=== PATIENT | female | born 1945 | race Caucasian/White ===

== ENCOUNTER 2017-04-20 15:58 | Inpatient (IN) | payer MEDICARE ==
[~2017-04-20] VITALS: Ht 156.2 cm; Wt 66.0 kg
[~2017-04-20 15:58] MED LIST: BACT800T5 PO; BENI20TA3 PO; CRANCAP11 PO; ESTR2TAB4 PO; GABA300C5 PO; LEXA5TAB PO; MULTTAB67 PO; PROT40TA PO; [UNRECOGNIZED DRUG - CODE] PO; potassium otc PO
[2017-04-20 16:01] VITALS: BP 178/77; PULSE 78; RESP 16; TEMP 98.2; O2SAT 98
[2017-04-20 16:45] VITALS: RESP 17; O2SAT 98
--- NOTE | 2017-04-20 16:58 | PD ---
HPI Chief Complaint: Chest Pain Time Seen by Provider: 16:24 Travel History International Travel<30 days: No Contact w/Intl Traveler<30days: No Traveled to known affect area: No History of Present Illness HPI 71-year-old female presents to emergency Department with complaint of left- sided chest pain 2 days. Reports shortness of breath feeling lethargic, and nauseated without recent vomiting. Ports vomiting 2 days ago. Was seen in urgent care and was told to come to the emergency department. Chest pain is intermittent and reports worsening today. It rates pain 9/10. Describes it as pressure. Reports tobacco use. No known aggravating factors. Denies anticoagulants therapy. Is also Complaining of left lower extremity pain behind her knee and edema times one week. 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 Payton. Denies history of DVT or PE. Denies recent surgeries. Positive family history of heart attacks with her mother and brother. She was given aspirin urgent care prior to arrival to the ER. Denies fevers. No known allergies. Primary care provider is Dr. Hawk. History of asthma, Jain cyst, hypertension. Has no medical complaints. No modifying factors or associated signs and symptoms. PFSH Past Medical History Hx Anticoagulant Therapy: No Blood Disorders: No Anxiety: Yes Depression: Yes Cancer: No Cardiovascular Problems: Yes (HTN) Chemotherapy: No Chest Pain: Yes Cerebrovascular Accident: No Diabetes: No Endocrine: No Gastrointestinal Disorders: Yes Genitourinary: No Hypertension: Yes Immune Disorder: No Implanted Vascular Access Dvce: Yes Musculoskeletal: Yes Neurologic: No Psychiatric: Yes Reproductive: No Respiratory: Yes ?: Not Menopausal: Yes : 2 Para: 2 Past Surgical History Abdominal Surgery: Yes (KALPANA,APPY,GALLBLADDER) Appendectomy: Yes Cholecystectomy: Yes Hysterectomy: Yes Other Surgery: Yes Social History Alcohol Use: Yes (EVERY OTHER DAY 1 DRINK ) Tobacco Use: No Substance Use: No Allergies-Medications (Allergen,Severity, Reaction): Coded Allergies: No Known Allergies (Unverified Allergy, Unknown, 04/20/17) Reported Meds & Prescriptions Reported Meds & Active Scripts Active Reported Seroquel (Quetiapine Fumarate) 50 Mg Tab 50 Mg PO HS [place] (Hydrocodone-Acetaminophen) 10-325 Mg Tab 1 Tab PO Q6H PRN Mobic (Meloxicam) 15 Mg Tab 15 Mg PO DAILY Xanax (Alprazolam) 0.5 Mg Tab 0.5 Mg PO TID PRN Benicar (Olmesartan) 5 Mg Tab 5 Mg PO DAILY Lexapro (Escitalopram Oxalate) 20 Mg Tab 20 Mg PO HS Multiple Vitamin 1 Tab 1 Tab PO DAILY Gabapentin 300 Mg Cap 300 Mg PO TID Estrace (Estradiol) 2 Mg Tab 3 Mg PO DAILY Review of Systems Except as stated in HPI: all other systems reviewed are Neg Physical Exam Narrative GENERAL: Well-nourished, well-developed female patient, in no acute distress SKIN: Warm and dry. HEAD: Atraumatic. Normocephalic. EYES: Pupils equal and round. No scleral icterus. No injection or drainage. ENT: Mucosa pink and moist. Airway patent. NECK: Trachea midline. CHEST: Reproducible tenderness to the left chest area on palpation; no crepitance or deformity. CARDIOVASCULAR: Regular rate and rhythm. No murmur appreciated. RESPIRATORY: No accessory muscle use. Clear and equal to auscultation bilaterally. GASTROINTESTINAL: Abdomen soft, non-tender, nondistended. No signs active 4 quadrants. MUSCULOSKELETAL: Left lower extremity supple and non-tense with 2+ pedal pulse and sensory intact without erythema. Reproducible tenderness on palpation to the left posterior upper calf and behind the knee. No obvious deformities. No clubbing. No cyanosis. cranial nerve deficits. Motor grossly within normal limits. Normal speech. PSYCHIATRIC: Appropriate mood and affect; insight and judgment normal. Data Data Last Documented VS Orders Orders Electrocardiogram (04/20/17 16:14) Complete Blood Count With Diff (04/20/17 16:14) Chest, Single Ap (04/20/17 16:14) Iv Access Insert/Monitor (04/20/17 16:14) Ecg Monitoring (04/20/17 16:14) Oxygen Administration (04/20/17 16:14) Oximetry (04/20/17 16:14) Basic Metabolic Panel (Bmp) (04/20/17 16:47) Ckmb (Isoenzyme) Profile (04/20/17 16:47) Magnesium (Mg) (04/20/17 16:47) Prothrombin Time / Inr (Pt) (04/20/17 16:47) Act Partial Throm Time (Ptt) (04/20/17 16:47) Troponin I (04/20/17 16:47) Sodium Chloride 0.9% Flush (Ns Flush) (04/20/17 17:00) Us Leg Venous Doppler (04/20/17 ) CKMB (04/20/17 16:50) CKMB% (04/20/17 16:50) Sodium Chlorid 0.9% 500 Ml Inj (Ns 500 M (04/20/17 19:00) Sodium Chlor 0.9% 1... W/Sodium Bicarbon (04/20/17 19:00) Admit To Inpatient (04/20/17 ) Vital Signs (Adult) Q4H (04/20/17 19:35) Activity Oob Ad Maame (04/20/17 19:35) Latex Foam Worker / Telemetry .CONTINUOUS (04/20/17 19:35) Intake + Output EDER.QSHIFT (04/20/17 19:35) Diet Heart Healthy (04/21/17 Breakfast) Sodium Chlor 0.9% 1000 Ml Inj (Ns 1000 M (04/20/17 19:35) Sodium Chloride 0.9% Flush (Ns Flush) (04/20/17 19:45) Sodium Chloride 0.9% Flush (Ns Flush) (04/20/17 21:00) Ondansetron Inj (Zofran Inj) (04/20/17 19:45) Comprehensive Metabolic Panel (04/21/17 06:00) Complete Blood Count With Diff (04/21/17 06:00) Creatine Kinase (Cpk) (04/21/17 00:00) Creatine Kinase (Cpk) (04/21/17 06:00) Troponin I (04/21/17 00:00) Troponin I (04/21/17 06:00) Heparin Inj (Heparin Inj) (04/21/17 09:00) Acetaminophen (Tylenol) (04/20/17 19:45) Acetamin-Hydrocod 325-5 Mg (Corinth 5-325 (04/20/17 19:45) Morphine Inj (Morphine Inj) (04/20/17 19:45) Docusate Sodium-Senna (Keyla-Colace) (04/20/17 21:00) Magnesium Hydroxide Liq (Milk Of Magnesi (04/20/17 19:45) Sennosides (Senokot) (04/20/17 19:45) Bisacodyl Supp (Dulcolax Supp) (04/20/17 19:45) Lactulose Liq (Lactulose Liq) (04/20/17 19:45) Inpatient Certification (04/20/17 ) Nitroglycerin 2% Oint (Nitroglycerin 2% (04/20/17 19:45) Alprazolam (Xanax) (04/20/17 19:45) Escitalopram (Lexapro) (04/20/17 21:00) Estradiol (Estradiol) (04/21/17 09:00) Gabapentin (Neurontin) (04/21/17 09:00) Multivitamin (Theragran) (04/21/17 09:00) Quetiapine (Seroquel) (04/20/17 21:00) Labs Laboratory Tests Test 04/20/17 16:50 White Blood Count 9.0 TH/MM3 Red Blood Count 2.90 MIL/MM3 Hemoglobin 10.1 GM/DL Hematocrit 30.3 % Mean Corpuscular Volume 104.5 FL Mean Corpuscular Hemoglobin 34.9 PG Mean Corpuscular Hemoglobin Concent 33.4 % Red Cell Distribution Width 17.0 % Platelet Count 286 TH/MM3 Mean Platelet Volume 8.8 FL Neutrophils (%) (Auto) 75.9 % Lymphocytes (%) (Auto) 15.5 % Monocytes (%) (Auto) 5.6 % Eosinophils (%) (Auto) 1.9 % Basophils (%) (Auto) 1.1 % Neutrophils # (Auto) 6.8 TH/MM3 Lymphocytes # (Auto) 1.4 TH/MM3 Monocytes # (Auto) 0.5 TH/MM3 Eosinophils # (Auto) 0.2 TH/MM3 Basophils # (Auto) 0.1 TH/MM3 CBC Comment DIFF FINAL Differential Comment Prothrombin Time 9.3 SEC Prothromb Time International Ratio 0.8 RATIO Activated Partial Thromboplast Time 26.6 SEC Blood Urea Nitrogen 25 MG/DL Creatinine 2.05 MG/DL Random Glucose 78 MG/DL Calcium Level 8.4 MG/DL Magnesium Level 1.8 MG/DL Sodium Level 134 MEQ/L Potassium Level 4.5 MEQ/L Chloride Level 101 MEQ/L Carbon Dioxide Level 25.9 MEQ/L Anion Gap 7 MEQ/L Estimat Glomerular Filtration Rate 24 ML/MIN Total Creatine Kinase 3287 U/L Creatine Kinase MB 37.3 NG/ML Creatine Kinase MB % 1.1 % Troponin I LESS THAN 0.02 NG/ML MDM Medical Decision Making Medical Screen Exam Complete: Yes Emergency Medical Condition: Yes Medical Record Reviewed: Yes Differential Diagnosis DVT, nonspecific chest pain, UT, ACS, Jain cyst Narrative Course 71-year-old female with chest pain and left leg pain and edema. Chest pain protocol ordered. Left leg ultrasound ordered. Patient discussed with Dr. Guerra and he agrees with my plan of care. 1846: Chest x-ray and left leg venous Doppler ultrasound concludes: Chest X-Ray 04/20/17 1614 Signed Impressions: Service Date/Time: Thursday, April 20, 2017 16:47 - CONCLUSION: The lungs are clear. Ralph Herrera MD Lower Extremity Ultrasound 04/20/17 0000 Signed Impressions: Service Date/Time: Thursday, April 20, 2017 17:12 - CONCLUSION: Normal examination. Collection the popliteal fossa measuring 5.6 x 2.8 x 2.7 cm likely Jain's cyst David Piper MD Chest x-ray and ultrasound findings discussed with the patient. 184: CBC with signs of anemia, otherwise unremarkable. Coags unremarkable. BUN 25, creatinine 2.05, GFR 24. Total CK 3287, CK-MB 37.3. Troponin less than 0.02. Discussed findings with Dr. Guerra and he recommended patient admission, 500 mL normal saline bolus, and 1900: Dr. Guerra spoke with Dr. Vazquez for patient admission. Physician Communication Physician Communication JOSTIN Guillory Diagnosis Primary Impression: Rhabdomyolysis Qualified Codes: M62.82 - Rhabdomyolysis Additional Impressions: Chest pain Qualified Codes: R07.9 - Chest pain, unspecified Acute on chronic kidney failure Qualified Codes: N17.9 - Acute kidney failure, unspecified; N18.9 - Chronic kidney disease, unspecified Admitting Information Admitting Physician Requests: Admit Scripts Furosemide (Furosemide) 20 Mg Tab 20 MG PO DAILY for chf, #30 TAB 0 Refills Prov: Yony Velez MD 04/24/17 Doxycycline Hyclate (Doxycycline Hyclate) 100 Mg Cap 100 MG PO BID for Infection, #10 CAP 0 Refills Prov: Yony Velez MD 04/24/17 Chelsi Burnett LAUNCH MANAGER Apr 20, 2017 16:58
[2017-04-20] MEDS ORDERED: SODIUM CHLORIDE 0.9% FLUSH 10 ML FLUSH IVF PRN (17:00)
[2017-04-20 17:17] LABS: AUTOMATED NEUTROPHIL # 6.8 TH/MM3 (1.8-7.7); BASOPHIL # 0.1 TH/MM3 (0-0.2); BASOPHIL % 1.1 % (0.0-2.0); EOSINOPHIL # 0.2 TH/MM3 (0-0.4); EOSINOPHIL % 1.9 % (0.0-4.0); HEMATOCRIT 30.3 % (35.0-46.0); HEMO FLAGS DIFF FINAL; LYMPH % 15.5 % (9.0-44.0); LYMPHOCYTE # 1.4 TH/MM3 (1.0-4.8); MEAN CELL VOLUME 104.5 FL (80.0-100.0); MEAN CORPUSCULAR HEMOGLOBIN 34.9 PG (27.0-34.0); MEAN CORPUSCULAR HGB CONC 33.4 % (32.0-36.0); MONO % 5.6 % (0.0-8.0); NEUT % 75.9 % (16.0-70.0); PLATELET COUNT 286 TH/MM3 (150-450)
[2017-04-20] MEDS ORDERED: HYDR-3366 PO (17:23)
[2017-04-20] MEDS ORDERED: SERO50TA PO (17:23)
[2017-04-20] MEDS ORDERED: BENI5TAB4 PO (17:23)
[2017-04-20] MEDS ORDERED: MOBI15TA PO (17:23)
[2017-04-20] MEDS ORDERED: ALPR.5 PO (17:23)
[2017-04-20] MEDS ORDERED: LEXA20TA PO (17:23)
[2017-04-20 17:26] LABS: APTT (PATIENT) 26.6 SEC (24.3-30.1); PROTHROMBIN TIME - PATIENT 9.3 SEC (9.8-11.6)
--- NOTE | 2017-04-20 17:50 | RADRPT ---
EXAM DATE/TIME: 04/20/2017 17:12 [facility] COMPARISON: No previous studies available for comparison. INDICATIONS : Left leg pain. MEDICAL HISTORY : Hypertension. Respiratory disorder. Depression. Anxiety. Shingles. SURGICAL HISTORY : Appendectomy. Cholecystectomy. Hysterectomy. Bilateral jain cyst drained. ENCOUNTER: Initial ACUITY: 1 day PAIN SCORE: 5/10 LOCATION: Left leg. TECHNIQUE: Venous ultrasound of the leg was performed from the inguinal ligament to the proximal calf. Real-joanie e, color Doppler and spectral tracing, compression and augmentation techniques were used. FINDINGS: There is normal compressibility of the deep venous system from the inguinal region to the proximal ca lf. No echogenic clot is seen in the lumen of the common femoral, femoral, popliteal, and posterior tibial veins. There is a normal response of the venous system to proximal and distal augmentation an d respiration. CONCLUSION: Normal examination. Collection the popliteal fossa measuring 5.6 x 2.8 x 2.7 cm likely Jain's cyst David Piper MD on April 20, 2017 at 17:47 Board Certified Radiologist. This report was verified electronically.
[2017-04-20 17:54] LABS: INTERNATIONAL NORMALIZED RATIO 0.8 RATIO
[2017-04-20 18:07] LABS: CREATINE KINASE 3287 U/L (26-192)
--- NOTE | 2017-04-20 18:07 | RADRPT ---
EXAM DATE/TIME: 04/20/2017 16:47 [facility] COMPARISON: CHEST SINGLE AP, April 30, 2014, 16:30. INDICATIONS : Patient states chest pains. MEDICAL HISTORY : None. SURGICAL HISTORY : None. ENCOUNTER: Initial ACUITY: 2 days PAIN SCORE: 5/10 LOCATION: Bilateral chest FINDINGS: A single view of the chest demonstrates the lungs to be symmetrically aerated without evidence of mas s, infiltrate or effusion. The cardiomediastinal contours are unremarkable. Osseous structures are intact. CONCLUSION: The lungs are clear. Ralph Herrera MD on April 20, 2017 at 18:05 Board Certified Radiologist. This report was verified electronically.
[2017-04-20 18:15] LABS: ANION GAP 7 MEQ/L (5-15); BICARBONATE 25.9 MEQ/L (21.0-32.0); BLOOD UREA NITROGEN 25 MG/DL (7-18); CHLORIDE 101 MEQ/L (98-107); GLOMERULAR FILTRATION RATE 24 ML/MIN (>89); MAGNESIUM 1.8 MG/DL (1.5-2.5); POTASSIUM 4.5 MEQ/L (3.5-5.1); SODIUM (NA) 134 MEQ/L (136-145)
[2017-04-20 18:20] LABS: CKMB 37.3 NG/ML (0.5-3.6)
[2017-04-20] MEDS ORDERED: SODIUM BICARBONATE 8.4% INJ 50 MEQ in SODIUM CHLOR 0.9% 1000 ML INJ 1,000 ML IV SCH (19:00)
[2017-04-20] MEDS ORDERED: SODIUM CHLORID 0.9% 500 ML INJ 500 ML IV ONE (19:00)
--- NOTE | 2017-04-20 19:40 | HHI.HP ---
[facility] Service [facility] Primary Care Physician Serina Leonard M.D. Admission Diagnosis Diagnoses: (1) Chest pain Diagnosis: Principal (2) Rhabdomyolysis Diagnosis: Principal (3) RADHA (acute kidney injury) Diagnosis: Principal (4) HTN (hypertension) Diagnosis: Principal (5) Knee pain, left Diagnosis: Principal Travel History International Travel<30 Days: No Contact w/Intl Traveler <30 Da: No Traveled to Known Affected Are: No History of Present Illness This is a 71-year-old female with a PMH of Anxiety, Depression, HTN and GERD who presented to the ER with complaints of chest pain in addition to SOB, generalized weakness and few episodes of nausea, no vomiting. States symptoms have been ongoing for approx 2 days. Seen in Urgent Care today and told to come to ER for c/o chest pain. On arrival, BP 178/77, HR 78, O2 sat 98% on RA, Afebrile. CBC at baseline. Creatinine 2.05, previously 1.56 on 05/16/15. CPK 3287. Troponin negative. EKG with no acute changes. INR 0.8. CXR with no acute findings. While in ER, c/o left knee pain, known h/o Jain's Cyst, US LLE normal, will likely Jain's Cyst. Started on Sod Bicarb in ER. Review of Systems Except as stated in HPI: all other systems reviewed are Neg ROS: 14 point review of systems otherwise negative. Past Family Social History Past Medical History PMH: Anxiety, Depression, HTN and GERD Past Surgical History PAST SURGICAL HISTORY: Appendectomy, Hysterectomy, Cholecystectomy Allergies: Coded Allergies: No Known Allergies (Unverified Allergy, Unknown, 04/20/17) Family History PAST FAMILY HISTORY: Reviewed. No h/o DM or CAD Social History PAST SOCIAL HISTORY: Occasional alcohol. Negative for tobacco or drugs. Physical Exam Vital Signs Vital Signs Date Time Temp Pulse Resp B/P (MAP) Pulse Ox O2 Delivery O2 Flow Rate FiO2 04/20/17 17:25 78 16 98 Room Air 04/20/17 16:45 98 Room Air 04/20/17 16:45 17 98 Room Air 04/20/17 16:01 98.2 78 16 178/77 (110) 98 Physical Exam PE: GENERAL: Elderly white female in no acute distress, very sleepy. HEENT: PERRLA, EOMI. No scleral icterus or conjunctival pallor. No lid lag or facial droop. CARDIOVASCULAR: Regular rate and rhythm. No obvious murmurs to auscultation. No chest tenderness to palpation. RESPIRATORY: No obvious rhonchi or wheezing. Clear to auscultation. Breath sounds equal bilaterally. GASTROINTESTINAL: Abdomen soft, non-tender, nondistended. BS normal. MUSCULOSKELETAL: Extremities without clubbing, cyanosis, or edema. No obvious deformities. Left posterior knee, palpable cyst, mild tenderness. NEUROLOGICAL: Awake, alert and oriented x4. No focal neurologic deficits. Moving both upper and lower extremities spontaneously. Laboratory Laboratory Tests Test 04/20/17 16:50 White Blood Count 9.0 Red Blood Count 2.90 Hemoglobin 10.1 Hematocrit 30.3 Mean Corpuscular Volume 104.5 Mean Corpuscular Hemoglobin 34.9 Mean Corpuscular Hemoglobin Concent 33.4 Red Cell Distribution Width 17.0 Platelet Count 286 Mean Platelet Volume 8.8 Neutrophils (%) (Auto) 75.9 Lymphocytes (%) (Auto) 15.5 Monocytes (%) (Auto) 5.6 Eosinophils (%) (Auto) 1.9 Basophils (%) (Auto) 1.1 Neutrophils # (Auto) 6.8 Lymphocytes # (Auto) 1.4 Monocytes # (Auto) 0.5 Eosinophils # (Auto) 0.2 Basophils # (Auto) 0.1 CBC Comment DIFF FINAL Differential Comment Prothrombin Time 9.3 Prothromb Time International Ratio 0.8 Activated Partial Thromboplast Time 26.6 Blood Urea Nitrogen 25 Creatinine 2.05 Random Glucose 78 Calcium Level 8.4 Magnesium Level 1.8 Sodium Level 134 Potassium Level 4.5 Chloride Level 101 Carbon Dioxide Level 25.9 Anion Gap 7 Estimat Glomerular Filtration Rate 24 Total Creatine Kinase 3287 Creatine Kinase MB 37.3 Creatine Kinase MB % 1.1 Troponin I LESS THAN 0.02 Result Diagram: 04/20/17 1650 04/20/17 165 Caprini VTE Risk Assessment Caprini VTE Risk Assessment: Mod/High Risk (score >= 2) Caprini Risk Assessment Model Point Value = 1 Point Value = 2 Point Value = 3 Point Value = 5 Age 41-60 Minor surgery BMI > 25 kg/m2 Swollen legs Varicose veins or History of unexplained or recurrent spontaneous Oral contraceptives or hormone replacement Sepsis (< 1 month) Serious lung disease, including pneumonia (< 1 month) Abnormal pulmonary function Acute myocardial infarction Congestive heart failure (< 1 month) History of inflammatory bowel disease Medical patient at bed rest Age 61-74 Arthroscopic surgery Major open surgery (> 45 min) Laparoscopic surgery (> 45 min) Malignancy Confined to bed (> 72 hours) Immobilizing plaster cast Central venous access Age >= 75 History of VTE Family history of VTE Factor V Leiden Prothrombin 30220H Lupus anticoagulant Anticardiolipin antibodies Elevated serum homocysteine Heparin-induced thrombocytopenia Other congenital or acquired thrombophilia Stroke (< 1 month) Elective arthroplasty Hip, pelvis, or leg fracture Acute spinal cord injury (< 1 month) Prophylaxis Regimen Total Risk Factor Score Risk Level Prophylaxis Regimen 0-1 Low Early ambulation 2 Moderate Order ONE of the following: *Sequential Compression Device (SCD) *Heparin 5000 units SQ BID 3-4 Higher Order ONE of the following medications: *Heparin 5000 units SQ TID *Enoxaparin/Lovenox 40 mg SQ daily (WT < 150 kg, CrCl > 30 mL/min) *Enoxaparin/Lovenox 30 mg SQ daily (WT < 150 kg, CrCl > 10-29 mL/min) *Enoxaparin/Lovenox 30 mg SQ BID (WT < 150 kg, CrCl > 30 mL/min) AND/OR *Sequential Compression Device (SCD) 5 or more Highest Order ONE of the following medications: *Heparin 5000 units SQ TID (Preferred with Epidurals) *Enoxaparin/Lovenox 40 mg SQ daily (WT < 150 kg, CrCl > 30 mL/min) *Enoxaparin/Lovenox 30 mg SQ daily (WT < 150 kg, CrCl > 10-29 mL/min) *Enoxaparin/Lovenox 30 mg SQ BID (WT < 150 kg, CrCl > 30 mL/min) AND *Sequential Compression Device (SCD) Assessment and Plan Problem List: (1) Chest pain ICD Code: R07.9 - Chest pain, unspecified Status: Acute (2) Rhabdomyolysis ICD Code: M62.82 - Rhabdomyolysis Status: Acute (3) RADHA (acute kidney injury) ICD Code: N17.9 - Acute kidney failure, unspecified (4) HTN (hypertension) ICD Code: I10 - Essential (primary) hypertension (5) Knee pain, left ICD Code: M25.562 - Pain in left knee Assessment and Plan A/P: 1. Chest Pain: acute onset of chest pain x2 days, initial Trop negative, EKG w / no acute ischemia. Check serial cardiac enzymes, ASA, Statin, hold B-jaqueline in light of transient hypotension in ER. Consult Cardiology as needed. 2. Rhabdomyolysis: CPK 3287, reports generalized fatigue/lethargy, viral etiology? Started on Bicarb gtt in ER, will continue, IVF, monitor CPK. Check U/a. 3. RADHA: Creatinine 2.05, previously 1.56 on 05/16/15. Continue IVF as above, repeat labs in am. 4. HTN: BP 170's on arrival, likely compounded by acute c/o chest pain. While in ER, BP 92/42, HR 79. Continue w/ IVF as above, monitor BP, hold home medications. 5. Left Knee Pain: Acute on Chronic, h/o Jain's Cyst, previous drainage by Dr. Paige. US LLE w/ Jain's Cyst, no acute findings. Analgesics as needed. 6. DVT Prophylaxis: Heparin sq 7. Social work for d/c planning as needed. 8. Case discussed w/ ER physician at length Physician Certification 2 Midnight Certification Type: Admission for Inpatient Services Order for Inpatient Services The services are ordered in accordance with Medicare regulations or non- Medicare payer requirements, as applicable. In the case of services not specified as inpatient-only, they are appropriately provided as inpatient services in accordance with the 2-midnight benchmark. Estimated LOS (days): 2 days is the estimated time the patient will need to remain in the hospital, assuming treatment plan goals are met and no additional complications. Post-Hospital Plan: Not yet determined Problem Qualifiers (1) Chest pain: Qualified Codes: R07.9 - Chest pain, unspecified (2) Rhabdomyolysis: Qualified Codes: M62.82 - Rhabdomyolysis Negin Vazquez MD Apr 20, 2017 19:39
[2017-04-20] MEDS ORDERED: NITROGLYCERIN 2% OINT 1 GM PACKET TOPICAL PRN (19:45)
[2017-04-20] MEDS ORDERED: LACTULOSE SYRUP 20 GM/30 ML CUP PO PRN (19:45)
[2017-04-20] MEDS ORDERED: BISACODYL 10 MG SUPP RECTAL PRN (19:45)
[2017-04-20] MEDS ORDERED: MAGNESIUM HYDROXIDE SUSP 30 ML CUP PO PRN (19:45)
[2017-04-20] MEDS ORDERED: SODIUM CHLORIDE 0.9% FLUSH 10 ML FLUSH IV FLUSH PRN (19:45)
[2017-04-20] MEDS ORDERED: ONDANSETRON HCL 4 MG/2 ML VIAL IVP PRN (19:45)
[2017-04-20] MEDS ORDERED: ACETAMINOPHEN 325 MG TAB PO PRN (19:45)
[2017-04-20] MEDS ORDERED: SENNOSIDES 8.6 MG TAB PO PRN (19:45)
[2017-04-20 19:51] VITALS: BP 92/42; PULSE 79; RESP 15; O2SAT 96
[2017-04-20 20:15] VITALS: BP 89/46; PULSE 66; RESP 15; O2SAT 99
[2017-04-20] MEDS: SODIUM CHLOR 0.9% 1000 ML INJ 1,000 ML IV SCH (20:35)
[2017-04-20 20:45] VITALS: BP 94/48; PULSE 62; RESP 15; O2SAT 98
[2017-04-20] MEDS: SODIUM CHLORIDE 0.9% FLUSH 10 ML FLUSH IV FLUSH SCH (21:00)
[2017-04-20 21:05] VITALS: BP 132/61; PULSE 76; RESP 16; TEMP 97.3; O2SAT 94
[2017-04-20] MEDS: ESCITALOPRAM OXALATE 20 MG TAB PO SCH (21:26)
[2017-04-20] MEDS: QUEtiapine FUMARATE 25 MG TAB PO SCH (21:26)
[2017-04-20] MEDS: DOCUSATE SODIUM 50 MG/SENNA 8.6 MG TAB PO SCH (21:26)
[2017-04-20 21:27] LABS: BLOOD, URINE NEG (NEG); COMMENT (UR) CULT NOT INDICATED; CULTURE IF INDICATED CULT NOT INDICATED; GLUCOSE,URINE NEG (NEG); HYALINE CAST, URINE 16 /lpf (RARE); KETONE, URINE NEG (NEG); NITRITE,URINE NEG (NEG); PH, URINE 5.5 (5.0-8.5); SQUAMOUS EPITHELIAL CELL URINE 10 /hpf (0-5); URINE COLOR YELLOW (YELLW/STRAW)
[2017-04-21] VITALS (7 sets, daily range): BP systolic 93–131; BP diastolic 53–66; PULSE 62–80; RESP 16–20; TEMP 97.2–98.3; O2SAT 92–97
[2017-04-21] MEDS: MORPHINE SULFATE 4 MG/ML INJ IV PUSH PRN ×3 (00:34→07:22)
[2017-04-21 02:38] LABS: CREATINE KINASE 2096 U/L (26-192)
[2017-04-21 02:50] LABS: CKMB 21.2 NG/ML (0.5-3.6)
[2017-04-21] MEDS: SODIUM CHLOR 0.9% 1000 ML INJ 1,000 ML IV SCH ×3 (06:30→23:40)
[2017-04-21 08:16] LABS: AUTOMATED NEUTROPHIL # 4.3 TH/MM3 (1.8-7.7); BASOPHIL % 0.5 % (0.0-2.0); EOSINOPHIL # 0.2 TH/MM3 (0-0.4); EOSINOPHIL % 2.7 % (0.0-4.0); HEMATOCRIT 26.7 % (35.0-46.0); HEMO FLAGS DIFF FINAL; LYMPH % 24.3 % (9.0-44.0); LYMPHOCYTE # 1.5 TH/MM3 (1.0-4.8); MEAN CELL VOLUME 105.8 FL (80.0-100.0); MEAN CORPUSCULAR HEMOGLOBIN 35.9 PG (27.0-34.0); MEAN CORPUSCULAR HGB CONC 33.9 % (32.0-36.0); MONO % 4.6 % (0.0-8.0); NEUT % 67.9 % (16.0-70.0); PLATELET COUNT 234 TH/MM3 (150-450); RED BLOOD COUNT 2.52 MIL/MM3 (4.00-5.30); RED CELL DISTRIBUTION WIDTH 16.6 % (11.6-17.2); WHITE BLOOD COUNT 6.3 TH/MM3 (4.0-11.0)
[2017-04-21 08:32] LABS: ANION GAP 7 MEQ/L (5-15); AST (GOT) 72 U/L (15-37); BLOOD UREA NITROGEN 21 MG/DL (7-18); CHLORIDE 108 MEQ/L (98-107); GLOMERULAR FILTRATION RATE 27 ML/MIN (>89); POTASSIUM 4.3 MEQ/L (3.5-5.1); SODIUM (NA) 139 MEQ/L (136-145)
[2017-04-21 08:46] LABS: ALKALINE PHOSPHATASE 71 U/L (45-117); ALT (GPT) 20 U/L (10-53); CREATINE KINASE 1898 U/L (26-192); TOTAL BILIRUBIN ADULT 0.3 MG/DL (0.2-1.0)
[2017-04-21 08:58] LABS: CKMB 17.8 NG/ML (0.5-3.6)
[2017-04-21] MEDS ORDERED: PNEUMOCOCCAL POLYVALENT INJ 25 MCG/0.5 ML SYR IM ONE (09:00)
[2017-04-21] MEDS: PRAVASTATIN SOD 40 MG TAB PO SCH (09:25)
[2017-04-21] MEDS: HEPARIN SODIUM - SQ 10,000 UNITS/ML VIAL SQ SCH ×2 (09:25→21:01)
[2017-04-21] MEDS: MULTIVITAMIN TAB PO SCH (09:25)
[2017-04-21] MEDS: ASPIRIN EC 81 MG TABEC PO SCH (09:26)
[2017-04-21] MEDS: ESTRADIOL 1 MG TAB PO SCH (09:26)
[2017-04-21] MEDS: DOCUSATE SODIUM 50 MG/SENNA 8.6 MG TAB PO SCH ×2 (09:26→20:59)
[2017-04-21] MEDS: GABAPENTIN 300 MG CAP PO SCH ×2 (09:26→13:43)
[2017-04-21] MEDS: SODIUM CHLORIDE 0.9% FLUSH 10 ML FLUSH IV FLUSH SCH ×2 (09:26→20:59)
--- NOTE | 2017-04-21 13:36 | HHI.PR ---
Subjective Remarks The patient said that she has not had chest pain today. 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 She says she had Salmonella infections and urinary tract infections recently. She said she has been having diarrhea, but not today. She wants to go home soon. Discussed with nursing. Objective Vitals Vital Signs Date Time Temp Pulse Resp B/P (MAP) Pulse Ox O2 Delivery O2 Flow Rate FiO2 04/21/17 12:00 98.0 77 16 131/60 (83) 94 04/21/17 08:00 98.3 77 16 108/53 (71) 92 04/21/17 07:00 Room Air 04/21/17 04:00 97.2 65 20 126/57 (80) 94 04/21/17 01:20 62 04/21/17 01:07 Room Air 04/21/17 00:00 97.2 69 16 93/55 (68) 97 04/20/17 22:15 Room Air 04/20/17 21:05 97.3 76 16 132/61 (84) 94 04/20/17 20:55 04/20/17 20:45 62 15 94/48 (63) 98 Room Air 04/20/17 20:15 66 15 89/46 (60) 99 Room Air 04/20/17 19:51 79 15 92/42 (59) 96 Room Air 04/20/17 17:25 78 16 98 Room Air 04/20/17 16:45 98 Room Air 04/20/17 16:45 17 98 Room Air 04/20/17 16:01 98.2 78 16 178/77 (110) 98 I/O 04/20/17 04/20/17 04/20/17 04/21/17 04/21/17 04/21/17 07:00 15:00 23:00 07:00 15:00 23:00 Intake Total 500 ml 1564 ml Balance 500 ml 1564 ml Intake Oral 240 ml IV Total 500 ml 1324 ml # Voids 2 # Bowel Movements 0 Result Diagram: 04/21/17 0659 04/21/17 0659 Imaging Last Impressions Chest X-Ray 04/20/17 1614 Signed Impressions: Service Date/Time: Thursday, April 20, 2017 16:47 - CONCLUSION: The lungs are clear. Ralph Herrera MD Lower Extremity Ultrasound 04/20/17 0000 Signed Impressions: Service Date/Time: Thursday, April 20, 2017 17:12 - CONCLUSION: Normal examination. Collection the popliteal fossa measuring 5.6 x 2.8 x 2.7 cm likely Jain's cyst David Piper MD Objective Remarks GENERAL: Resting comfortably. HEENT: PERRLA, EOMI. No scleral icterus or conjunctival pallor. No lid lag or facial droop. CARDIOVASCULAR: Regular rate and rhythm. No obvious murmurs to auscultation. No chest tenderness to palpation. RESPIRATORY: No obvious rhonchi or wheezing. Clear to auscultation. Breath sounds equal bilaterally. GASTROINTESTINAL: Abdomen soft, non-tender, nondistended. BS normal. MUSCULOSKELETAL: Extremities without clubbing, cyanosis, or edema. No obvious deformities. Left posterior knee, palpable cyst, mild tenderness. NEUROLOGICAL: Awake, alert and oriented x4. No focal neurologic deficits. Moving both upper and lower extremities spontaneously. Medications and IVs Current Medications Medications (Trade) Dose Ordered Sig/Donna Route Start Time Stop Time Status Last Admin Sodium Chloride 1,000 ml @ 150 mls/hr Q6H40M IV 04/20/17 19:35 04/21/17 06:30 (NS Flush) 2 ml UNSCH PRN IV FLUSH 04/20/17 19:45 (NS Flush) 2 ml BID IV FLUSH 04/20/17 21:00 04/21/17 09:26 (Zofran Inj) 4 mg Q6H PRN IVP 04/20/17 19:45 (Heparin Inj) 5,000 units Q12H SQ 04/21/17 09:00 04/21/17 09:25 (Tylenol) 650 mg Q6H PRN PO 04/20/17 19:45 ([place] 5-325 Mg) 1 tab Q4H PRN PO 04/20/17 19:45 (Morphine Inj) 2 mg Q3H PRN IV PUSH 04/20/17 19:45 04/21/17 07:22 (Keyla-Colace) 1 tab BID PO 04/20/17 21:00 04/21/17 09:26 (Milk Of Magnesia Liq) 30 ml Q12H PRN PO 04/20/17 19:45 (Senokot) 17.2 mg Q12H PRN PO 04/20/17 19:45 (Dulcolax Supp) 10 mg DAILY PRN RECTAL 04/20/17 19:45 (Lactulose Liq) 30 ml DAILY PRN PO 04/20/17 19:45 (Nitroglycerin 2% Oint) 0.5 inch Q6HR PRN TOPICAL 04/20/17 19:45 (Xanax) 0.5 mg TID PRN PO 04/20/17 19:45 (Lexapro) 20 mg HS PO 04/20/17 21:00 04/20/17 21:26 (Estradiol) 3 mg DAILY PO 04/21/17 09:00 04/21/17 09:26 (Neurontin) 300 mg TID PO 04/21/17 09:00 04/21/17 13:43 (Theragran) 1 tab DAILY PO 04/21/17 09:00 04/21/17 09:25 (SEROquel) 50 mg HS PO 04/20/17 21:00 04/20/17 21:26 (Ecotrin Ec) 81 mg DAILY PO 04/21/17 09:00 04/21/17 09:26 (Pravachol) 40 mg DAILY PO 04/21/17 09:00 04/21/17 09:25 A/P Problem List: (1) Chest pain ICD Code: R07.9 - Chest pain, unspecified Status: Acute (2) Rhabdomyolysis ICD Code: M62.82 - Rhabdomyolysis Status: Acute (3) RADHA (acute kidney injury) ICD Code: N17.9 - Acute kidney failure, unspecified (4) HTN (hypertension) ICD Code: I10 - Essential (primary) hypertension (5) Knee pain, left ICD Code: M25.562 - Pain in left knee Assessment and Plan Chest Pain Acute onset of chest pain x2 days. Trops negative. EKG w/ no acute ischemia, left axis deviation. Had a stress test in 2012. - continue ASA, statin, hold B-jaqueline in light of transient hypotension in ER. - stress test in AM. - Consult Cardiology as needed. Rhabdomyolysis CPK 3287, reports generalized fatigue/lethargy, viral etiology? Started on Bicarb gtt in ER. - will continue NS. - monitor CPK. RADHA Creatinine 2.05, previously 1.56 on 05/16/15. - Continue IVF as above, repeat labs in am. HTN BP 170's on arrival. Likely compounded by acute c/o chest pain. Improved. - Vasotec as needed. - resume home meds. 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 US LLE w / Jain's Cyst, no acute findings. - Analgesics as needed. Anemia Chronic. The pt is followed by Dr. Kaplan. Concern for MDS. - outpt follow-up. DVT Prophylaxis: Heparin sq Discharge Planning Anticipate d/c in AM following stress test and improvement in creatinine/ CK levels Problem Qualifiers (1) Chest pain: Qualified Codes: R07.9 - Chest pain, unspecified (2) Rhabdomyolysis: Qualified Codes: M62.82 - Rhabdomyolysis Fabiano Worthington DO Apr 21, 2017 13:36
--- NOTE | 2017-04-21 15:24 | EKG ---
Date Performed: 04/20/2017 Time Performed: 16:13:36 PTAGE: 71 years EKG: Sinus rhythm MARKED LEFT AXIS DEVIATION ABNORMAL ECG Compared to the PREVIOUS TRACING from 04/30/14, no significant change DOCTOR: Delbert Snell Interpretating Date/Time 04/21/2017 15:23:22
[2017-04-21] MEDS: ACETAMINOPHEN/HYDROcodone 325 MG/5 MG TAB PO PRN ×2 (16:42→21:00)
[2017-04-21] MEDS: GABAPENTIN 100 MG CAP PO SCH (17:13)
[2017-04-21] MEDS: ALPRAZolam 0.5 MG TAB PO PRN (20:59)
[2017-04-21] MEDS: ESCITALOPRAM OXALATE 20 MG TAB PO SCH (20:59)
[2017-04-21] MEDS: QUEtiapine FUMARATE 25 MG TAB PO SCH (20:59)
[2017-04-22] VITALS (8 sets, daily range): BP systolic 94–150; BP diastolic 51–66; PULSE 59–89; RESP 18–20; TEMP 97.3–99; O2SAT 95–98
[2017-04-22] MEDS: SODIUM CHLOR 0.9% 1000 ML INJ 1,000 ML IV SCH ×2 (05:51→12:41)
[2017-04-22 07:33] LABS: HEMATOCRIT 23.3 % (35.0-46.0); MEAN CORPUSCULAR HEMOGLOBIN 35.6 PG (27.0-34.0); MEAN CORPUSCULAR HGB CONC 33.3 % (32.0-36.0); PLATELET COUNT 194 TH/MM3 (150-450); RED BLOOD COUNT 2.17 MIL/MM3 (4.00-5.30); RED CELL DISTRIBUTION WIDTH 16.7 % (11.6-17.2); REVIEW FLAG FINAL; WHITE BLOOD COUNT 5.5 TH/MM3 (4.0-11.0)
[2017-04-22] MEDS: GABAPENTIN 100 MG CAP PO SCH ×3 (08:25→17:19)
[2017-04-22] MEDS: MULTIVITAMIN TAB PO SCH (08:25)
[2017-04-22] MEDS: PRAVASTATIN SOD 40 MG TAB PO SCH (08:25)
[2017-04-22] MEDS: HEPARIN SODIUM - SQ 10,000 UNITS/ML VIAL SQ SCH ×2 (08:25→21:30)
[2017-04-22] MEDS: ACETAMINOPHEN/HYDROcodone 325 MG/5 MG TAB PO PRN ×2 (08:25→21:30)
[2017-04-22] MEDS: ESTRADIOL 1 MG TAB PO SCH (08:25)
[2017-04-22] MEDS: DOCUSATE SODIUM 50 MG/SENNA 8.6 MG TAB PO SCH ×2 (08:25→21:30)
[2017-04-22] MEDS: ASPIRIN EC 81 MG TABEC PO SCH (08:25)
[2017-04-22] MEDS: SODIUM CHLORIDE 0.9% FLUSH 10 ML FLUSH IV FLUSH SCH ×2 (08:26→21:00)
[2017-04-22 08:28] LABS: MAGNESIUM 1.7 MG/DL (1.5-2.5); POTASSIUM 4.6 MEQ/L (3.5-5.1)
[2017-04-22 09:10] LABS: CALCIUM-PROTEIN CORRECTED 7.9 MG/DL (8.5-10.1)
--- NOTE | 2017-04-22 13:20 | HHI.PR ---
Subjective Remarks The patient was resting. She did not know when she was going for the stress test. 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 Discussed with nursing. Objective Vitals Vital Signs Date Time Temp Pulse Resp B/P (MAP) Pulse Ox O2 Delivery O2 Flow Rate FiO2 04/22/17 09:00 97.3 75 18 127/58 (81) 95 04/22/17 04:00 Room Air 04/22/17 04:00 97.8 61 19 102/51 (68) 97 04/22/17 00:00 98.5 65 20 94/53 (67) 97 04/22/17 00:00 Room Air 04/21/17 20:00 97.7 72 20 120/66 (84) 96 04/21/17 20:00 80 04/21/17 20:00 Room Air 04/21/17 16:00 97.7 70 16 110/54 (72) 94 I/O 04/21/17 04/21/17 04/21/17 04/22/17 04/22/17 04/22/17 07:00 15:00 23:00 07:00 15:00 23:00 Intake Total 1564 ml 255 ml 1903 ml 932 ml Balance 1564 ml 255 ml 1903 ml 932 ml Intake Oral 240 ml 840 ml 0 ml IV Total 1324 ml 255 ml 1063 ml 932 ml # Voids 2 5 3 # Bowel Movements 0 0 0 Result Diagram: 04/22/17 0715 04/22/17 0715 Imaging Last Impressions Chest X-Ray 04/20/17 1614 Signed Impressions: Service Date/Time: Thursday, April 20, 2017 16:47 - CONCLUSION: The lungs are clear. Ralph Herrera MD Lower Extremity Ultrasound 04/20/17 0000 Signed Impressions: Service Date/Time: Thursday, April 20, 2017 17:12 - CONCLUSION: Normal examination. Collection the popliteal fossa measuring 5.6 x 2.8 x 2.7 cm likely Jain's cyst David Piper MD Objective Remarks GENERAL: Resting comfortably. HEENT: PERRLA, EOMI. No scleral icterus or conjunctival pallor. No lid lag or facial droop. CARDIOVASCULAR: Regular rate and rhythm. No obvious murmurs to auscultation. No chest tenderness to palpation. RESPIRATORY: No obvious rhonchi or wheezing. Clear to auscultation. Breath sounds equal bilaterally. GASTROINTESTINAL: Abdomen soft, non-tender, nondistended. BS normal. MUSCULOSKELETAL: Extremities without clubbing, cyanosis, or edema. No obvious deformities. Left posterior knee, palpable cyst, mild tenderness. NEUROLOGICAL: Awake, alert and oriented x4. No focal neurologic deficits. Moving both upper and lower extremities spontaneously. PSYCH: Mood and affect appropriate. Medications and IVs Current Medications Medications (Trade) Dose Ordered Sig/Donna Route Start Time Stop Time Status Last Admin (NS Flush) 2 ml UNSCH PRN IV FLUSH 04/20/17 19:45 (NS Flush) 2 ml BID IV FLUSH 04/20/17 21:00 04/21/17 09:26 (Zofran Inj) 4 mg Q6H PRN IVP 04/20/17 19:45 (Heparin Inj) 5,000 units Q12H SQ 04/21/17 09:00 04/22/17 08:25 (Tylenol) 650 mg Q6H PRN PO 04/20/17 19:45 ([place] 5-325 Mg) 1 tab Q4H PRN PO 04/20/17 19:45 04/22/17 08:25 (Morphine Inj) 2 mg Q3H PRN IV PUSH 04/20/17 19:45 04/21/17 07:22 (Keyla-Colace) 1 tab BID PO 04/20/17 21:00 04/22/17 08:25 (Milk Of Magnesia Liq) 30 ml Q12H PRN PO 04/20/17 19:45 (Senokot) 17.2 mg Q12H PRN PO 04/20/17 19:45 (Dulcolax Supp) 10 mg DAILY PRN RECTAL 04/20/17 19:45 (Lactulose Liq) 30 ml DAILY PRN PO 04/20/17 19:45 (Nitroglycerin 2% Oint) 0.5 inch Q6HR PRN TOPICAL 04/20/17 19:45 (Xanax) 0.5 mg TID PRN PO 04/20/17 19:45 04/21/17 20:59 (Lexapro) 20 mg HS PO 04/20/17 21:00 04/21/17 20:59 (Estradiol) 3 mg DAILY PO 04/21/17 09:00 04/22/17 08:25 (Theragran) 1 tab DAILY PO 04/21/17 09:00 04/22/17 08:25 (SEROquel) 50 mg HS PO 04/20/17 21:00 04/21/17 20:59 (Ecotrin Ec) 81 mg DAILY PO 04/21/17 09:00 04/22/17 08:25 (Pravachol) 40 mg DAILY PO 04/21/17 09:00 04/22/17 08:25 (Neurontin) 100 mg TID PO 04/21/17 18:00 04/22/17 12:41 Dextrose/Sodium Chloride 1,000 ml @ 100 mls/hr Q10H IV 04/22/17 12:45 A/P Problem List: (1) Chest pain ICD Code: R07.9 - Chest pain, unspecified Status: Acute (2) Rhabdomyolysis ICD Code: M62.82 - Rhabdomyolysis Status: Acute (3) RADHA (acute kidney injury) ICD Code: N17.9 - Acute kidney failure, unspecified (4) HTN (hypertension) ICD Code: I10 - Essential (primary) hypertension (5) Knee pain, left ICD Code: M25.562 - Pain in left knee Assessment and Plan Chest Pain Acute onset of chest pain x2 days. Trops negative. EKG w/ no acute ischemia, left axis deviation. Had a stress test in 2012. - continue ASA, statin, hold ARB in setting of renal insufficiency. - stress test pending. - Consult Cardiology as needed. Rhabdomyolysis CPK 3287, reports generalized fatigue/lethargy, viral etiology? Started on NS and bicarb in the ED. Improving. - will continue with D51/2NS. - monitor CPK level. Acute renal insufficiency Creatinine 2.05, previously 1.56 on 05/16/15. - Continue IVF as above, repeat labs in am. Improving. May be new baseline. - holding ARB. HTN BP 170's on arrival. Likely compounded by acute c/o chest pain. Improved. - Vasotec as needed. - resume home meds. Holding ARB as above. 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 US LLE w / Jain's Cyst, no acute findings. - Analgesics as needed. Anemia Chronic. The pt is followed by Dr. Kaplan. Concern for MDS. Hemoglobin low at 7.3. - outpt follow-up. - follow CBC and transfuse if hgb < 7. LE edema Unsure of etiology. Possibly s/t renal disease or dependent edema. - check a BNP. - CHECO stockings. Hypoglycemia The pt was NPO for the stress test. - start D5. - monitor Accu-checks. DVT Prophylaxis: Heparin sq Discharge Planning Anticipate d/c in AM following stress test and improvement in creatinine/ CK levels Problem Qualifiers (1) Chest pain: Qualified Codes: R07.9 - Chest pain, unspecified (2) Rhabdomyolysis: Qualified Codes: M62.82 - Rhabdomyolysis Fabiano Worthington DO Apr 22, 2017 13:20
[2017-04-22] MEDS: DEXT 5%-NACL 0.45% 1000 ML INJ 1,000 ML IV SCH ×2 (16:00→23:09)
[2017-04-22] MEDS: QUEtiapine FUMARATE 25 MG TAB PO SCH (21:29)
[2017-04-22] MEDS: ALPRAZolam 0.5 MG TAB PO PRN (21:30)
[2017-04-22] MEDS: ESCITALOPRAM OXALATE 20 MG TAB PO SCH (21:30)
[2017-04-23] VITALS (7 sets, daily range): BP systolic 133–169; BP diastolic 61–75; PULSE 69–85; RESP 18–22; TEMP 97.4–98.8; O2SAT 90–98
[2017-04-23] MEDS: ACETAMINOPHEN/HYDROcodone 325 MG/5 MG TAB PO PRN ×3 (01:14→21:07)
[2017-04-23] MEDS: DEXT 5%-NACL 0.45% 1000 ML INJ 1,000 ML IV SCH ×2 (06:17→17:53)
[2017-04-23] MEDS: SODIUM CHLORIDE 0.9% FLUSH 10 ML FLUSH IV FLUSH SCH ×2 (07:41→21:00)
[2017-04-23 08:00] LABS: HEMATOCRIT 24.6 % (35.0-46.0); MEAN CELL VOLUME 106.1 FL (80.0-100.0); MEAN CORPUSCULAR HEMOGLOBIN 34.8 PG (27.0-34.0); MEAN CORPUSCULAR HGB CONC 32.8 % (32.0-36.0); PLATELET COUNT 225 TH/MM3 (150-450); RED BLOOD COUNT 2.32 MIL/MM3 (4.00-5.30); RED CELL DISTRIBUTION WIDTH 16.2 % (11.6-17.2); REVIEW FLAG FINAL
[2017-04-23] MEDS: ASPIRIN EC 81 MG TABEC PO SCH (08:26)
[2017-04-23] MEDS: GABAPENTIN 100 MG CAP PO SCH ×3 (08:26→17:52)
[2017-04-23] MEDS: HEPARIN SODIUM - SQ 10,000 UNITS/ML VIAL SQ SCH ×2 (08:27→21:07)
[2017-04-23] MEDS: ESTRADIOL 1 MG TAB PO SCH (08:27)
[2017-04-23] MEDS: DOCUSATE SODIUM 50 MG/SENNA 8.6 MG TAB PO SCH ×2 (08:27→21:06)
[2017-04-23] MEDS: PRAVASTATIN SOD 40 MG TAB PO SCH (08:27)
[2017-04-23] MEDS: ALPRAZolam 0.5 MG TAB PO PRN ×2 (08:27→21:06)
[2017-04-23] MEDS: MULTIVITAMIN TAB PO SCH (08:27)
[2017-04-23 08:28] LABS: BICARBONATE 22.4 MEQ/L (21.0-32.0); INDIRECT BILIRUBIN 0.1 MG/DL (0.0-0.8); MAGNESIUM 1.7 MG/DL (1.5-2.5); POTASSIUM 4.3 MEQ/L (3.5-5.1); TOTAL BILIRUBIN ADULT 0.2 MG/DL (0.2-1.0)
[2017-04-23] MEDS ORDERED: REGADENOSON INJ 0.4 MG/5 ML SYR ONE (08:47)
[2017-04-23 09:00] LABS: CALCIUM-PROTEIN CORRECTED 7.8 MG/DL (8.5-10.1)
[2017-04-23 09:15] LABS: CKMB 2.8 NG/ML (0.5-3.6)
--- NOTE | 2017-04-23 10:36 | RADRPT ---
EXAM DATE/TIME: 04/22/2017 14:36 [facility] COMPARISON: No previous studies available for comparison. INDICATIONS : Substernal chest pain with dyspnea. Angina. DOSE: 30.2 mCi Tc99m Myoview at stress. 31.2 mCi Tc99m Myoview at rest. 0.4 mg Lexiscan STRESS SYMPTOMS: None. EJECTION FRACTION: 70% MEDICAL HISTORY : Hypertension. Gastroesophageal reflux disease. Acute kidney injury. SURGICAL HISTORY : Cholecystectomy. Appendectomy. Hysterectomy. ENCOUNTER: Initial ACUITY: 2 days PAIN SCALE: 7/10 LOCATION: Substernal chest TECHNIQUE: The patient underwent pharmacologic stress with infusion of prescribed dose. Continuous ECG tracing was monitored during stress. Gated SPECT imaging was performed after stress and conventional SPECT i maging was performed at rest. The examination was performed on a SPECT/CT scanner, both attenuation and non-corrected datasets were reviewed. FINDINGS: DISTRIBUTION: The maximum perfused segment at stress is in the anterolateral wall. PERFUSION STUDY: The pattern of perfusion at stress is within normal limits. GATED STUDY: There is intact wall motion and thickening without hypokinetic or dyskinetic segments. CONCLUSION: Normal examination. RISK CATEGORY: Low (<1% Annual Mortality Rate) Daniel Morgan MD on April 23, 2017 at 10:32 Board Certified Radiologist. This report was verified electronically.
[2017-04-23] MEDS ORDERED: RESP: ALBUTEROL 2.5 MG/IPRATROPIUM 0.5 MG NEB (SCH) NEB ONE (10:45)
--- NOTE | 2017-04-23 10:47 | HHI.PR ---
Subjective Remarks The patient was little groggy this morning. She says she needed an inhaler. She was oriented to the month, year, location and president. No other acute complaints at this time. Objective Vitals Vital Signs Date Time Temp Pulse Resp B/P (MAP) Pulse Ox O2 Delivery O2 Flow Rate FiO2 04/23/17 07:12 Room Air 04/23/17 04:00 Room Air 04/23/17 04:00 97.9 76 22 152/74 (100) 95 04/23/17 00:00 97.7 69 21 135/61 (85) 96 04/23/17 00:00 Room Air 04/22/17 20:10 89 04/22/17 20:00 Room Air 04/22/17 20:00 98.6 72 19 150/66 (94) 98 04/22/17 16:10 99.0 82 18 142/64 (90) 95 04/22/17 13:00 98.5 76 18 138/60 (86) 95 I/O 04/22/17 04/22/17 04/22/17 04/23/17 04/23/17 04/23/17 07:00 15:00 23:00 07:00 15:00 23:00 Intake Total 932 ml 720 ml 2299 ml Output Total 500 ml 900 ml Balance 932 ml 220 ml 1399 ml Intake Oral 0 ml 720 ml 440 ml IV Total 932 ml 1859 ml Output Urine Total 500 ml 900 ml # Voids 3 # Bowel Movements 0 2 0 Result Diagram: 04/23/17 0605 04/23/17 0657 Imaging Last Impressions Chest X-Ray 04/20/17 1614 Signed Impressions: Service Date/Time: Thursday, April 20, 2017 16:47 - CONCLUSION: The lungs are clear. Ralph Herrera MD Lower Extremity Ultrasound 04/20/17 0000 Signed Impressions: Service Date/Time: Thursday, April 20, 2017 17:12 - CONCLUSION: Normal examination. Collection the popliteal fossa measuring 5.6 x 2.8 x 2.7 cm likely Jain's cyst David Piper MD Objective Remarks GENERAL: Resting comfortably. HEENT: PERRLA, EOMI. No scleral icterus or conjunctival pallor. No lid lag or facial droop. CARDIOVASCULAR: Regular rate and rhythm. No obvious murmurs to auscultation. No chest tenderness to palpation. RESPIRATORY: Mild wheezing. GASTROINTESTINAL: Abdomen soft, non-tender, nondistended. BS normal. MUSCULOSKELETAL: Extremities without clubbing. Left posterior knee, palpable cyst, mild tenderness. + LE edema. NEUROLOGICAL: Lethargic. No focal neurologic deficits. Moving both upper and lower extremities spontaneously. PSYCH: Mood and affect appropriate. Medications and IVs Current Medications Medications (Trade) Dose Ordered Sig/Donna Route Start Time Stop Time Status Last Admin (NS Flush) 2 ml UNSCH PRN IV FLUSH 04/20/17 19:45 (NS Flush) 2 ml BID IV FLUSH 04/20/17 21:00 04/21/17 09:26 (Zofran Inj) 4 mg Q6H PRN IVP 04/20/17 19:45 (Heparin Inj) 5,000 units Q12H SQ 04/21/17 09:00 04/23/17 08:27 (Tylenol) 650 mg Q6H PRN PO 04/20/17 19:45 ([place] 5-325 Mg) 1 tab Q4H PRN PO 04/20/17 19:45 04/23/17 08:27 (Morphine Inj) 2 mg Q3H PRN IV PUSH 04/20/17 19:45 04/21/17 07:22 (Keyla-Colace) 1 tab BID PO 04/20/17 21:00 04/23/17 08:27 (Milk Of Magnesia Liq) 30 ml Q12H PRN PO 04/20/17 19:45 (Senokot) 17.2 mg Q12H PRN PO 04/20/17 19:45 (Dulcolax Supp) 10 mg DAILY PRN RECTAL 04/20/17 19:45 (Lactulose Liq) 30 ml DAILY PRN PO 04/20/17 19:45 (Nitroglycerin 2% Oint) 0.5 inch Q6HR PRN TOPICAL 04/20/17 19:45 (Xanax) 0.5 mg TID PRN PO 04/20/17 19:45 04/23/17 08:27 (Lexapro) 20 mg HS PO 04/20/17 21:00 04/22/17 21:30 (Estradiol) 3 mg DAILY PO 04/21/17 09:00 04/23/17 08:27 (Theragran) 1 tab DAILY PO 04/21/17 09:00 04/23/17 08:27 (SEROquel) 50 mg HS PO 04/20/17 21:00 04/22/17 21:29 (Ecotrin Ec) 81 mg DAILY PO 04/21/17 09:00 04/23/17 08:26 (Pravachol) 40 mg DAILY PO 04/21/17 09:00 04/23/17 08:27 (Neurontin) 100 mg TID PO 04/21/17 18:00 04/23/17 08:26 Dextrose/Sodium Chloride 1,000 ml @ 100 mls/hr Q10H IV 04/22/17 12:45 04/23/17 06:17 (Duoneb Neb) 1 ampule ONCE ONCE NEB 04/23/17 10:45 04/23/17 10:46 UNV (Duoneb Neb) 1 ampule Q2HR NEB PRN NEB 04/23/17 10:45 UNV A/P Problem List: (1) Chest pain ICD Code: R07.9 - Chest pain, unspecified Status: Acute (2) Rhabdomyolysis ICD Code: M62.82 - Rhabdomyolysis Status: Acute (3) RADHA (acute kidney injury) ICD Code: N17.9 - Acute kidney failure, unspecified (4) HTN (hypertension) ICD Code: I10 - Essential (primary) hypertension (5) Knee pain, left ICD Code: M25.562 - Pain in left knee Assessment and Plan Chest Pain Acute onset of chest pain x2 days. Trops negative. EKG w/ no acute ischemia, left axis deviation. Had a stress test in 2012. Stress test negative. - continue ASA, statin, hold ARB in setting of renal insufficiency. - resolved. Rhabdomyolysis CPK 3287, reports generalized fatigue/lethargy, viral etiology? Started on NS and bicarb in the ED. Improving. - IVFs. Encourage PO intake. - monitor CPK level. Acute renal insufficiency Creatinine 2.05, previously 1.56 on 05/16/15. - Improved with fluids. Encourage PO intake. - holding ARB. HTN BP 170's on arrival. Likely compounded by acute c/o chest pain. Improved. - Vasotec as needed. - resume home meds. Holding ARB as above. 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 US LLE w / Jain's Cyst, no acute findings. - Analgesics as needed. Anemia Chronic. The pt is followed by Dr. Kaplan. Concern for MDS. Hemoglobin low at 7.3. - outpt follow-up. - follow CBC and transfuse if hgb < 7. LE edema Unsure of etiology. Possibly s/t renal disease or dependent edema. - check a BNP. 198. - CHECO stockings. Hypoglycemia The pt was NPO for the stress test. - started on D5. Encourage PO intake. - monitor Accu-checks. Dyspnea The pt has mild wheezing on exam. - repeat CXR. - Duonebs. - PT eval. DVT Prophylaxis: Heparin sq Discharge Planning Possible d/c later today after PT eval and if respiratory status is improved Problem Qualifiers (1) Chest pain: Qualified Codes: R07.9 - Chest pain, unspecified (2) Rhabdomyolysis: Qualified Codes: M62.82 - Rhabdomyolysis Fabiano Worthington DO Apr 23, 2017 10:47
--- NOTE | 2017-04-23 11:23 | RADRPT ---
EXAM DATE/TIME: 04/23/2017 10:52 [facility] COMPARISON: CHEST SINGLE AP, April 20, 2017, 16:47. INDICATIONS : Shortness of breath. MEDICAL HISTORY : Respiratory disorder. Depression. Anxiety. Shingles SURGICAL HISTORY : Appendectomy. Cholecystectomy. Hysterectomy. Bilateral roman cyst ENCOUNTER: Initial ACUITY: 4 - 6 days PAIN SCORE: Non-responsive. LOCATION: Bilateral upper chest FINDINGS: A single portable frontal view the chest shows new bibasilar pulmonary infiltrates. This is more pron ounced on the left. No effusions. Heart normal in size. CONCLUSION: New bibasilar infiltrates. Ralph Frye Jr., MD on April 23, 2017 at 11:21 Board Certified Radiologist. This report was verified electronically.
[2017-04-23] MEDS: DOXYCYCLINE INJ 100 MG in SODIUM CHLORIDE 0.9% INJ 100 ML IV SCH (15:01)
[2017-04-23] MEDS: RESP: ALBUTEROL 2.5 MG/IPRATROPIUM 0.5 MG NEB (PRN) NEB ×2 (15:44→20:18)
[2017-04-23] MEDS: QUEtiapine FUMARATE 25 MG TAB PO SCH (21:06)
[2017-04-23] MEDS: ESCITALOPRAM OXALATE 20 MG TAB PO SCH (21:06)
[2017-04-24] VITALS: BP 148/87; PULSE 79; RESP 18; TEMP 98.5; O2SAT 95
[2017-04-24] MEDS: DOXYCYCLINE INJ 100 MG in SODIUM CHLORIDE 0.9% INJ 100 ML IV SCH (02:48)
[2017-04-24] MEDS: DEXT 5%-NACL 0.45% 1000 ML INJ 1,000 ML IV SCH (02:50)
[2017-04-24 04:00] VITALS: BP 156/75; PULSE 88; RESP 18; TEMP 98.1; O2SAT 95
[2017-04-24 07:23] LABS: HEMATOCRIT 25.2 % (35.0-46.0); MEAN CELL VOLUME 103.6 FL (80.0-100.0); MEAN CORPUSCULAR HGB CONC 33.8 % (32.0-36.0); PLATELET COUNT 235 TH/MM3 (150-450); RED BLOOD COUNT 2.43 MIL/MM3 (4.00-5.30); RED CELL DISTRIBUTION WIDTH 16.2 % (11.6-17.2); REVIEW FLAG FINAL; WHITE BLOOD COUNT 8.5 TH/MM3 (4.0-11.0)
[2017-04-24 07:46] LABS: BICARBONATE 21.1 MEQ/L (21.0-32.0); MAGNESIUM 1.4 MG/DL (1.5-2.5); POTASSIUM 4.2 MEQ/L (3.5-5.1)
[2017-04-24 07:52] LABS: INDIRECT BILIRUBIN 0.2 MG/DL (0.0-0.8); TOTAL BILIRUBIN ADULT 0.3 MG/DL (0.2-1.0)
[2017-04-24 08:06] LABS: CKMB 1.7 NG/ML (0.5-3.6)
[2017-04-24 08:08] VITALS: BP 155/71; PULSE 84; RESP 17; TEMP 99.2; O2SAT 96
[2017-04-24] MEDS: DOCUSATE SODIUM 50 MG/SENNA 8.6 MG TAB PO SCH (09:00)
[2017-04-24] MEDS: HEPARIN SODIUM - SQ 10,000 UNITS/ML VIAL SQ SCH (09:00)
[2017-04-24] MEDS: ESTRADIOL 1 MG TAB PO SCH (09:33)
[2017-04-24] MEDS: MULTIVITAMIN TAB PO SCH (09:33)
[2017-04-24] MEDS: SODIUM CHLORIDE 0.9% FLUSH 10 ML FLUSH IV FLUSH SCH (09:33)
[2017-04-24] MEDS: PRAVASTATIN SOD 40 MG TAB PO SCH (09:33)
[2017-04-24] MEDS: ASPIRIN EC 81 MG TABEC PO SCH (09:33)
[2017-04-24] MEDS: GABAPENTIN 100 MG CAP PO SCH ×2 (09:33→12:28)
[2017-04-24] MEDS ORDERED: FUROSEMIDE 40 MG TAB PO ONE (10:15)
--- NOTE | 2017-04-24 10:42 | HHI.PR ---
Subjective Remarks Patient denies chest pain. states is always short of breath. Feels short of breath with exertion. noted to be short of breath upon sitiing on edge of bed. Denies fevers or chills. still has right knee pain. c/o edema in lower extremities. Objective Vitals Vital Signs Date Time Temp Pulse Resp B/P (MAP) Pulse Ox O2 Delivery O2 Flow Rate FiO2 04/24/17 08:08 99.2 84 17 155/71 (99) 96 04/24/17 04:00 98.1 88 18 156/75 (102) 95 04/24/17 00:00 98.5 79 18 148/87 (107) 95 04/23/17 20:00 Room Air 04/23/17 20:00 98.8 85 18 133/65 (87) 97 04/23/17 19:56 77 04/23/17 16:00 98.1 77 20 169/75 (106) 90 04/23/17 12:00 97.5 75 20 154/70 (98) 98 I/O 04/23/17 04/23/17 04/23/17 04/24/17 04/24/17 04/24/17 07:00 15:00 23:00 07:00 15:00 23:00 Intake Total 2299 ml 1460 ml 1580 ml 300 ml Output Total 900 ml Balance 1399 ml 1460 ml 1580 ml 300 ml Intake Oral 440 ml 360 ml 480 ml IV Total 1859 ml 1100 ml 1100 ml 300 ml Output Urine Total 900 ml # Voids 8 6 # Bowel Movements 0 2 1 Result Diagram: 04/24/17 0651 04/24/17 0651 Imaging Last Impressions Chest X-Ray 04/23/17 0000 Signed Impressions: Service Date/Time: Sunday, April 23, 2017 10:52 - CONCLUSION: New bibasilar infiltrates. Ralph Frye Jr., MD Myocardial Perfusion Scan Nuc Med 04/22/17 0600 Signed Impressions: Service Date/Time: Saturday, April 22, 2017 14:36 - CONCLUSION: Normal examination. RISK CATEGORY: Low (<1%% Annual Mortality Rate) Daniel Morgan MD Lower Extremity Ultrasound 04/20/17 0000 Signed Impressions: Service Date/Time: Thursday, April 20, 2017 17:12 - CONCLUSION: Normal examination. Collection the popliteal fossa measuring 5.6 x 2.8 x 2.7 cm likely Jain's cyst David Piper MD Objective Remarks AAOx3, mild to moderate tachypnea and respiratory distress Bibasilar bilateral rales more audible on the left, no wheezing or rhonchi Abdomen softm bt, nd no JVD (+) 2 pitting edema in BL lower extremities. right knee swollen and tender to palpation. Patient with jeans on, unable to fully asses for warmth Medications and IVs Current Medications Medications (Trade) Dose Ordered Sig/Donna Route Start Time Stop Time Status Last Admin (NS Flush) 2 ml UNSCH PRN IV FLUSH 04/20/17 19:45 (NS Flush) 2 ml BID IV FLUSH 04/20/17 21:00 04/24/17 09:33 (Zofran Inj) 4 mg Q6H PRN IVP 04/20/17 19:45 (Heparin Inj) 5,000 units Q12H SQ 04/21/17 09:00 04/23/17 21:07 (Tylenol) 650 mg Q6H PRN PO 04/20/17 19:45 (Strong 5-325 Mg) 1 tab Q4H PRN PO 04/20/17 19:45 04/23/17 21:07 (Morphine Inj) 2 mg Q3H PRN IV PUSH 04/20/17 19:45 04/21/17 07:22 (Keyla-Colace) 1 tab BID PO 04/20/17 21:00 04/23/17 21:06 (Milk Of Magnesia Liq) 30 ml Q12H PRN PO 04/20/17 19:45 (Senokot) 17.2 mg Q12H PRN PO 04/20/17 19:45 (Dulcolax Supp) 10 mg DAILY PRN RECTAL 04/20/17 19:45 (Lactulose Liq) 30 ml DAILY PRN PO 04/20/17 19:45 (Nitroglycerin 2% Oint) 0.5 inch Q6HR PRN TOPICAL 04/20/17 19:45 (Xanax) 0.5 mg TID PRN PO 04/20/17 19:45 04/23/17 21:06 (Lexapro) 20 mg HS PO 04/20/17 21:00 04/23/17 21:06 (Estradiol) 3 mg DAILY PO 04/21/17 09:00 04/24/17 09:33 (Theragran) 1 tab DAILY PO 04/21/17 09:00 04/24/17 09:33 (SEROquel) 50 mg HS PO 04/20/17 21:00 04/23/17 21:06 (Ecotrin Ec) 81 mg DAILY PO 04/21/17 09:00 04/24/17 09:33 (Pravachol) 40 mg DAILY PO 04/21/17 09:00 04/24/17 09:33 (Neurontin) 100 mg TID PO 04/21/17 18:00 04/24/17 09:33 Dextrose/Sodium Chloride 1,000 ml @ 100 mls/hr Q10H IV 04/22/17 12:45 04/24/17 02:50 (Duoneb Neb) 1 ampule Q2HR NEB PRN NEB 04/23/17 10:45 04/23/17 20:18 Doxycycline Hyclate 100 mg/ Sodium Chloride 100 ml @ 100 mls/hr Q12H IV 04/23/17 15:00 04/24/17 02:48 (Lasix) 40 mg ONCE ONCE PO 04/24/17 10:15 04/24/17 10:16 UNV (Lasix) 40 mg DAILY PO 04/25/17 09:00 UNV Urinary Catheter: No Vascular Central Line Catheter: No A/P Problem List: (1) Chest pain ICD Code: R07.9 - Chest pain, unspecified Status: Acute (2) Rhabdomyolysis ICD Code: M62.82 - Rhabdomyolysis Status: Acute (3) RADHA (acute kidney injury) ICD Code: N17.9 - Acute kidney failure, unspecified (4) HTN (hypertension) ICD Code: I10 - Essential (primary) hypertension (5) Knee pain, left ICD Code: M25.562 - Pain in left knee Assessment and Plan Chest Pain Acute onset of chest pain x2 days. Trops negative. EKG w/ no acute ischemia, left axis deviation. Had a stress test in 2012. - continue ASA, statin, hold ARB in setting of renal insufficiency. - Nuclear stress test negative. - resolved. Rhabdomyolysis CPK 3287, reports generalized fatigue/lethargy, viral etiology? Started on NS and bicarb in the ED. Improving. - Treated with IV fluids. 04/24 CPK level trending down. Patient CPK in the 3000 on admission, down to 647. Discontinue IV fluids given that patient is showing clinical signs and symptoms of acute congestive heart failure. Acute kidney injury on chronic kidney disease stage III Creatinine 2.05, previously 1.56 on 05/16/15. -Treated with IV fluids, oral intake of fluids encouraged. ARB held secondary to rising creatinine. 04/24 creatinine continues to trend down, DC IV fluids due to clinical signs of fluid overload on chest x-ray and shortness of breath clinically. Continue to hold ARB. Uncontrolled hypertension BP 170's on arrival. Likely compounded by acute c/o chest pain. Improved. - Vasotec as needed. 04/24 continue home antihypertensive medications. Continue to hold ARB. Blood pressure improved and acceptable. 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 US LLE w / Jain's Cyst, no acute findings. - Analgesics as needed. Anemia Chronic. The pt is followed by Dr. Kaplan. Concern for MDS. Hemoglobin low at 7.3. - outpt follow-up. - follow CBC and transfuse if hgb < 7. 04/24 seems to be chronic. Macrocytic anemia, will check B12 and folate. Bilateral lower extremity edema - Suspect secondary to acute congestive heart failure and fluid overload. Chest x-ray reviewed by me shows bilateral infiltrates with increased congestion. - CHECO stockings. 04/25 will start the patient IV Lasix. DVT ruled out with Lower extremity ultrasound on 04/20. Hypoglycemia The pt was NPO for the stress test. - started on D5. Encourage PO intake. - monitor Accu-checks. 04/24 Blood sugars stable for the last 2 days. Acute Congestive heart failure The patient had mild wheezing on exam on 04/23/17, on exam today the patient has bilateral bibasilar crackles were audible on the left. Chest x-ray reviewed by me showed bilateral infiltrates and pulmonary congestion. Patient started on IV doxycycline by Dr. Vega which I will continue to treat a possible developing pneumonia. Check 2-D echocardiogram and will give 40 mg IV Lasix now since patient is short of breath and start on 40 minutes by mouth daily. DVT Prophylaxis: Heparin sq Discharge Planning Charge pending echocardiogram, clinical improvement of congestive heart failure. Problem Qualifiers (1) Chest pain: Qualified Codes: R07.9 - Chest pain, unspecified (2) Rhabdomyolysis: Qualified Codes: M62.82 - Rhabdomyolysis Yony Velez MD Apr 24, 2017 10:42
[2017-04-24] MEDS ORDERED: FUROSEMIDE 40 MG/4 ML VIAL IV PUSH ONE (12:00)
[2017-04-24 12:08] VITALS: BP 155/71; PULSE 84; RESP 17; TEMP 99.2; O2SAT 96
[2017-04-24] MEDS ORDERED: DOXY100C PO (14:13)
[2017-04-24] MEDS ORDERED: FURO20TA PO (14:14)
--- NOTE | 2017-04-24 14:20 | HHI.DCPOC ---
Discharge Care Plan Diagnosis: (1) Congestive heart disease (2) Chest pain (3) Rhabdomyolysis (4) Acute on chronic kidney failure (5) HTN (hypertension) (6) Knee pain, left (7) RADHA (acute kidney injury) Goals to Promote Your Health * To prevent worsening of your condition and complications * To maintain your health at the optimal level Directions to Meet Your Goals Take your medications as prescribed Follow your dietary instruction Follow activity as directed Keep your appointments as scheduled Take your immunizations and boosters as scheduled If your symptoms worsen call your PCP, if no PCP go to Urgent Care Center or Emergency Room Smoking is Dangerous to Your Health. Avoid second hand smoke Call the 24-hour hour crisis hotline for domestic abuse at Yony Veelz MD Apr 24, 2017 14:20
--- NOTE | 2017-04-24 14:27 | HHI.DS ---
Discharge Summary Admission Date Apr 20, 2017 at 19:39 Discharge Date: Apr 24, 2017 Admitting Diagnosis (1) Chest pain ICD Code: R07.9 - Chest pain, unspecified Diagnosis: Principal Status: Resolved (2) Rhabdomyolysis ICD Code: M62.82 - Rhabdomyolysis Diagnosis: Principal Status: Resolved (3) RADHA (acute kidney injury) ICD Code: N17.9 - Acute kidney failure, unspecified Diagnosis: Principal Status: Resolved (4) HTN (hypertension) ICD Code: I10 - Essential (primary) hypertension Diagnosis: Secondary Status: Chronic (5) Knee pain, left ICD Code: M25.562 - Pain in left knee Diagnosis: Principal Status: Chronic (6) Acute on chronic kidney failure ICD Code: N17.9 - Acute kidney failure, unspecified; N18.9 - Chronic kidney disease, unspecified Status: Resolved (7) Congestive heart disease ICD Code: I50.9 - Heart failure, unspecified Diagnosis: Principal Status: Acute Procedures none Brief History - From Admission This is a 71-year-old female with a PMH of Anxiety, Depression, HTN and GERD who presented to the ER with complaints of chest pain in addition to SOB, generalized weakness and few episodes of nausea, no vomiting. States symptoms have been ongoing for approx 2 days. Seen in Urgent Care today and told to come to ER for c/o chest pain. On arrival, BP 178/77, HR 78, O2 sat 98% on RA, Afebrile. CBC at baseline. Creatinine 2.05, previously 1.56 on 05/16/15. CPK 3287. Troponin negative. EKG with no acute changes. INR 0.8. CXR with no acute findings. While in ER, c/o left knee pain, known h/o Jain's Cyst, US LLE normal, will likely Jain's Cyst. Started on Sod Bicarb in ER. CBC/BMP: 04/24/17 0651 04/24/17 0651 Significant Findings Laboratory Tests Test 04/22/17 07:15 04/23/17 06:05 04/23/17 06:57 04/24/17 06:51 Red Blood Count 2.17 MIL/MM3 (4.00-5.30) 2.32 MIL/MM3 (4.00-5.30) 2.43 MIL/MM3 (4.00-5.30) Hemoglobin 7.7 GM/DL (11.6-15.3) 8.1 GM/DL (11.6-15.3) 8.5 GM/DL (11.6-15.3) Hematocrit 23.3 % (35.0-46.0) 24.6 % (35.0-46.0) 25.2 % (35.0-46.0) Mean Corpuscular Volume 107.0 FL (80.0-100.0) 106.1 FL (80.0-100.0) 103.6 FL (80.0-100.0) Mean Corpuscular Hemoglobin 35.6 PG (27.0-34.0) 34.8 PG (27.0-34.0) 35.0 PG (27.0-34.0) Blood Urea Nitrogen 19 MG/DL (7-18) Creatinine 1.63 MG/DL (0.50-1.00) 1.36 MG/DL (0.50-1.00) 1.21 MG/DL (0.50-1.00) Random Glucose 62 MG/DL (74-106) Total Protein 5.7 GM/DL (6.4-8.2) 6.1 GM/DL (6.4-8.2) 6.3 GM/DL (6.4-8.2) Calcium Level 7.2 MG/DL (8.5-10.1) 7.3 MG/DL (8.5-10.1) 8.0 MG/DL (8.5-10.1) Chloride Level 113 MEQ/L (98-107) 113 MEQ/L (98-107) 114 MEQ/L (98-107) Estimat Glomerular Filtration Rate 31 ML/MIN (>89) 38 ML/MIN (>89) 44 ML/MIN (>89) Protein Corrected Calcium 7.9 MG/DL (8.5-10.1) 7.8 MG/DL (8.5-10.1) Total Creatine Kinase 1146 U/L (26-192) 991 U/L (26-192) 647 U/L (26-192) B-Type Natriuretic Peptide 198 PG/ML (0-100) Albumin 2.5 GM/DL (3.4-5.0) 2.7 GM/DL (3.4-5.0) Aspartate Amino Transf (AST/SGOT) 48 U/L (15-37) Magnesium Level 1.4 MG/DL (1.5-2.5) Imaging Last Impressions Chest X-Ray 04/23/17 0000 Signed Impressions: Service Date/Time: Sunday, April 23, 2017 10:52 - CONCLUSION: New bibasilar infiltrates. Ralph Frye Jr., MD Myocardial Perfusion Scan Nuc Med 04/22/17 0600 Signed Impressions: Service Date/Time: Saturday, April 22, 2017 14:36 - CONCLUSION: Normal examination. RISK CATEGORY: Low (<1%% Annual Mortality Rate) Daniel Morgan MD Lower Extremity Ultrasound 04/20/17 0000 Signed Impressions: Service Date/Time: Thursday, April 20, 2017 17:12 - CONCLUSION: Normal examination. Collection the popliteal fossa measuring 5.6 x 2.8 x 2.7 cm likely Jain's cyst David Piper MD PE at Discharge AAOx3, mild to moderate tachypnea and respiratory distress Bibasilar bilateral rales more audible on the left, no wheezing or rhonchi Abdomen softm bt, nd no JVD (+) 2 pitting edema in BL lower extremities. right knee swollen and tender to palpation. Patient with jeans on, unable to fully asses for warmth Pt update on day of discharge Patient seen this a.m. the patient initially was very short of breath, however this has improved significantly after IV Lasix administration. The patient is demanding to discharge and due to her improvement I will do so. Echocardiogram has not been done yet, however the patient states that she can follow-up with Dr. 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 I will discharge the patient on Lasix 20 mg by mouth daily. I will defer the use of chronic aspirin to the patient's salesperson flying squad. Hospital Course Chest Pain Acute onset of chest pain x2 days. Trops negative. EKG w/ no acute ischemia, left axis deviation. Had a stress test in 2012. - treated with ASA, statin, hold ARB in setting of renal insufficiency. - resolved. - Patient will be discharge on ARB for BP control. However I will leave the decision to treat with chronic antiplatelet and statin therapy to the patient's salesperson flying squad. Of note, lipid profile has not been done during this admission or ever in the past the patient has been here. The patient does not want to wait to have it done, so she will have it done as an outpatient. Rhabdomyolysis The patient presented with a CPK of 3287, which was treated with IV fluids and trended down to 647. CPK level was monitored during hospital stay. Rhabdomyolysis cause was not clearly identified during hospital stay, thought to be secondary to dehydration and a possible biotechnology. The patient was also treated with normal sodium bicarbonate in emergency department. Acute renal insufficiency Creatinine 2.05 on admission. Upon review of records noted to be 1.56 on . Creatinine improved 1 back to baseline with IV fluids. ARB was held, however resumed upon discharge. Uncontrolled hypertension/hypertensive emergency. Blood pressure initially in the 170s upon arrival. Chest pain possibly secondary to hypertensive emergency. The patient was treated with Vasotec as needed, blood pressure improved and patient's ARB was resumed upon the patient's discharge. 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 US LLE w / Jain's Cyst, no acute findings. - Analgesics as needed. Anemia Chronic. The pt is followed by Dr. Kaplan. Concern for MDS. Hemoglobin low at 7.3. - outpt follow-up. - follow CBC and transfuse if hgb < 7. 04/24 seems to be chronic. Macrocytic anemia, B12 and folate ordered however not completed prior to discharge. Will recommend for PCP to perform this as an outpatient. Bilateral lower extremity edema - Suspect secondary to acute congestive heart failure and fluid overload. Chest x-ray reviewed by me shows bilateral infiltrates with increased congestion. - CHECO stockings. 04/25 will start the patient IV Lasix. DVT ruled out with Lower extremity ultrasound on 04/20. Hypoglycemia The pt was NPO for the stress test. - started on D5. Encourage PO intake. - monitor Accu-checks. 04/24 Blood sugars stable for the last 2 days prior to discharge. Acute Congestive heart failure The patient had mild wheezing on exam on 04/23/17 and was short of breath the morning of discharge. Chest x-ray reviewed by me showed bilateral infiltrates and pulmonary congestion. Patient started on IV doxycycline by Dr. Vega which I will continue to treat a possible developing pneumonia. Echocardiogram was ordered and patient was given 1 dose of 40 mg of IV Lasix and started patient on oral daily Lasix. Patient had substantial improvement after the IV Lasix dose and was stable enough to be discharged. Patient was discharged on oral Lasix. Echo cardiac deferred to be done as an outpatient by her salesperson [employer] squad. Patient instructed to follow-up with Dr. Dotson from cardiology. DVT Prophylaxis: Patient placed on heparin subcutaneously. Pt Condition on Discharge: Stable Discharge Disposition: Disch w/ Home Health Serv Discharge Time: > 30 minutes Discharge Instructions DIET: Follow Instructions for: Heart Healthy Diet, Low Sodium Diet Activities you can perform: Regular-No Restrictions Activities to Avoid: Prolonged Standing, Strenuous Activity Follow up Referrals: Cardiology - 1 Week PCP Follow-up - 1 Week New Medications: Doxycycline Hyclate (Doxycycline Hyclate) 100 Mg Cap 100 MG PO BID for Infection, #10 CAP 0 Refills Furosemide (Furosemide) 20 Mg Tab 20 MG PO DAILY for chf, #30 TAB 0 Refills Continued Medications: Alprazolam (Xanax) 0.5 Mg Tab 0.5 MG PO TID PRN for ANXIETY, TAB 0 Refills Escitalopram (Lexapro) 20 Mg Tab 20 MG PO HS, #30 TAB 0 Refills Estradiol (Estrace) 2 Mg Tab 3 MG PO DAILY for Estrogen Supplements, #30 TAB 0 Refills Gabapentin (Gabapentin) 300 Mg Cap 300 MG PO TID, #30 CAP 0 Refills Hydrocodone-Acetaminophen (Ringoes) 10-325 Mg Tab 1 TAB PO Q6H PRN for PAIN, TAB 0 Refills Meloxicam (Mobic) 15 Mg Tab 15 MG PO DAILY, TAB 0 Refills Multiple Vitamin (Multiple Vitamin) 1 Tab 1 TAB PO DAILY for Nutritional Supplement, TAB 0 Refills Olmesartan (Benicar) 5 Mg Tab 5 MG PO DAILY for Blood Pressure Management, #30 TAB 0 Refills Quetiapine (Seroquel) 50 Mg Tab 50 MG PO HS, #30 TAB 0 Refills Yony Velez MD Apr 24, 2017 14:27
[2017-04-25] MEDS ORDERED: FUROSEMIDE 40 MG TAB PO SCH (09:00)
== END 2017-04-24 14:48 | disposition home health service (06) | DRG 682 ==
LOC: NEPE 15:58 → NEDA 19:39 → N04B 20:56
PROVIDERS: ADMIT Hospitalist; ATTEND Hospitalist
DX: N17.9 Acute kidney failure, unspecified (principal); J18.9 Pneumonia, unspecified organism; M62.82 Rhabdomyolysis; I13.0 Hypertensive heart and chronic kidney disease with heart failure and stage 1 through stage 4 chronic kidney disease, or unspecified chronic kidney disease; I50.9 Heart failure, unspecified; D53.9 Nutritional anemia, unspecified; I16.1 Hypertensive emergency; N18.3 Chronic kidney disease, stage 3 (moderate); E86.0 Dehydration; K21.9 Gastro-esophageal reflux disease without esophagitis; M71.20 Synovial cyst of popliteal space [Baker], unspecified knee; E16.2 Hypoglycemia, unspecified; F32.9 Major depressive disorder, single episode, unspecified; F41.9 Anxiety disorder, unspecified; Z23 Encounter for immunization; Z72.0 Tobacco use; Z82.49 Family history of ischemic heart disease and other diseases of the circulatory system
CPT/HCPCS: 71010; 76937; 78452; 80048; 80053; 80076; 81001; 82550; 82552; 82948; 83735; 83880; 84155; 84484; 85025; 85027; 85610; 85730; 90732; 93005; 93017; 93971; 94640; 94664; 99285; A9502; J1644; J1940; J2270; J2785; J7030; J7040